=== PATIENT | female | born 1980 | race African-American/Black ===

== ENCOUNTER 2016-08-10 00:14 | Emergency (ER) | payer OTHER ==
[~2016-08-10] VITALS: Ht 167.6 cm; Wt 85.3 kg
[~2016-08-10 00:14] MED LIST: NKM
[2016-08-10] MEDS ORDERED: LEXAPRO10 MG ORAL (00:31)
[2016-08-10 00:34] VITALS: BP 123/81
[2016-08-10 00:49] VITALS: BP 123/81
--- NOTE | 2016-08-10 00:49 | Emergency Room Report ---
History of Present Illness General Chief Complaint: General Complaint Source: Patient Present Illness HPI Patient presents with complaints of lymph node swelling behind both ears for several months Patient reports over 4-5 months Denies any fevers denies any neck pain Denies any chest pain or shortness of breath Denies any headache Pain is localized to the lymph node areas four out of 10 Worse with touch Patient reports that she has been seen at several different places and has not been able to get any answers Allergies: Coded Allergies: No Known Allergies (Unverified , 11/11/15) Patient History Past Medical History: see triage record Pertinent Family History: none Last Menstrual Period: July Reviewed Nursing Documentation: PMH: Agreed, PSxH: Agreed Nursing Documentation-PMH History Of Psychiatric Problem: Yes Review of Systems All Other Systems: negative except mentioned in HPI Physical Exam Vital Signs Date Time Temp Pulse Resp B/P Pulse Ox O2 Delivery O2 Flow Rate FiO2 08/10/16 00:25 97.5 102 16 123/81 100 Room Air Sp02 EP Interpretation: reviewed, normal General Appearance: well appearing, no apparent distress Head: normocephalic, atraumatic Eyes: bilateral eye EOMI, bilateral eye PERRL ENT: other - Patient does have palpable small nodes posterior auricular region bilaterally, well-circumscribed. Patient appears to have extensions in place throughout the scalp as well with increased tightening of the scalp and some evidence of inflammatory process, Neck: supple, thyroid normal Respiratory: lungs clear Cardiovascular #1: regular rate, rhythm Musculoskeletal: normal inspection Neurologic: alert, oriented x3, responsive Skin: normal color, no rash Lymphatic: other - as above Medical Decision Making Diagnostic Impression: Primary Impression: lymphadenopathy ER Course Given the appearance and location Given the stitches are in place there appears to be increased irritation, and reaction to this area, the lymph nodes are small palpable well circumscribed the ear exam is otherwise negative, there is a chronic component to this pathology and patient would be best served following up with primary physician for continued outpatient followup Last Vital Signs Date Time Temp Pulse Resp B/P Pulse Ox O2 Delivery O2 Flow Rate FiO2 08/10/16 00:34 97.5 84 16 123/81 100 Room Air Status: unchanged Disposition: HOME, SELF-CARE Condition: Stable Patient Instructions: Lymphadenopathy Additional Instructions: Patient is provided with the discharge instructions notified to follow up with primary doctor in the next 2-3 days otherwise return to the er with any worsening symptoms. Please note that this report is being documented using [employer]AGON technology. This can lead to erroneous entry secondary to incorrect interpretation by the dictating instrument. LAKESHA ESCOBAR D.O. August 10, 2016 00:49
== END 2016-08-10 00:49 | disposition home or self-care (01) ==
LOC: EMR 00:40
DX: R59.0 Localized enlarged lymph nodes (principal)
CPT/HCPCS: 99282